=== PATIENT | female | born 1965 | race Caucasian/White ===

== ENCOUNTER 2016-07-27 21:15 | Emergency (ER) | payer OTHER ==
[~2016-07-27] VITALS: Ht 172.7 cm; Wt 63.5 kg
[2016-07-27 21:37] LABS: BASO # 0.1 x10^3/uL (0.0-0.2); BASO % 1 % (0-3); EOS % 2 % (0-3); HEMATOCRIT 39.2 % (36.0-47.0); HEMOGLOBIN 12.8 g/dL (12.0-15.5); LYMPH # 4.5 x10^3/uL (1.0-4.8); LYMPH % 48 % (24-48); MEAN CORPUSCULAR HEMOGLOBIN 28 pg (25-35); MEAN CORPUSCULAR HGB CONC 33 g/dL (31-37); MEAN CORPUSCULAR VOLUME 85 fL (79-100); MONO % 8 % (0-9); NEUT % 41 % (31-73); PLATELET COUNT 296 x10^3/uL (140-400); RED BLOOD COUNT 4.64 x10^6/uL (3.50-5.40); RED CELL DISTRIBUTION WIDTH 13.7 % (11.5-14.5); WHITE BLOOD COUNT 9.3 x10^3/uL (4.0-11.0)
[2016-07-27 21:47] LABS: CALCIUM 8.7 mg/dL (8.5-10.1); CREATININE 0.8 mg/dL (0.6-1.0); GFR 76.2; POTASSIUM 3.4 mmol/L (3.5-5.1)
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
[2016-07-27] MEDS ORDERED: IV NORMAL SALINE 1000ML BAG 1,000 ML IV ONE (22:00)
[2016-07-27] MEDS ORDERED: LORAZEPAM 2 MG/ML VIAL. IV ONE (22:00)
[2016-07-27 22:23] VITALS: BP 105/64
[2016-07-27] MEDS ORDERED: CONTRAST GIVEN MC PRN (23:00)
[2016-07-27] MEDS ORDERED: IOHEXOL 300 MG/ML 75 ML VIAL IV ONE (23:30)
--- NOTE | 2016-07-27 23:52 | RAD ---
PROCEDURE CTA chest with contrast HISTORY Tachycardia TECHNIQUE Axial helical images of the chest obtained after administration of 75 cc IV Omni 300 contrast. Timing is appropriate for pulmonary artery evaluation. In addition thin cut axial images coronal and sagittal maximum intensity 3D projected imaging was performed.. FINDINGS The pulmonary vessels are well opacified without filling defects. The thoracic aorta appears normal. There is no lymphadenopathy. The lungs are clear. There is right hydronephrosis. IMPRESSION Right hydronephrosis partially included in the study. No evidence of pulmonary embolism. Normal thoracic aorta. PQRS Statement: One or more of the following individualized dose reduction techniques were utilized for this study: 1. Automated exposure control. 2. Adjustment of the mA and/or kV according to patient size. 3. Use of iterative reconstruction technique. Electronically signed by: Adolph Ohara MD (Jul 27, 2016 23:50:49)
[2016-07-27] MEDS ORDERED: LORA0.5T96 PO (23:59)
--- NOTE | 2016-07-28 06:22 | EKG ---
[facility] [address] [place] [id number] Test Date: 2016-07-27 Test Time: 21:25:43 Pat Name: AMRIK JORGE Department: Room: Gender: F [employer] Teacher: : 1965 Requested By: ERNESTO GARCÍA Order Number: [id number] Reading MD: Ezra Taylor Measurements Intervals [place] Rate: 72 P: 15 GA: 214 QRS: 103 QRSD: 78 T: 17 QT: 378 QTc: 415 Interpretive Statements SINUS RHYTHM NON-SPECIFIC ST/T CHANGES Electronically Signed On 07-29-2016 10:03:48 CDT by Ezra Taylor
== END 2016-07-28 00:10 | disposition home or self-care (01) ==
LOC: ER 21:15
DX: F41.9 Anxiety disorder, unspecified (principal); R42 Dizziness and giddiness; N13.30 Unspecified hydronephrosis; F17.200 Nicotine dependence, unspecified, uncomplicated
CPT/HCPCS: 36415; 71275; 80048; 81025; 84484; 85027; 85379; 93005; 96360; 99285; J7030; Q9967